=== PATIENT | female | born 1990 | race Hispanic/Latino ===

== ENCOUNTER 2023-01-22 10:10 | Observation (INO) | payer BC, MEDICAID ==
[~2023-01-22] VITALS: Ht 152.4 cm; Wt 98.9 kg
[2023-01-22 10:59] LABS: APPEARANCE,URINE CLEAR (CLEAR); BILIRUBIN,URINE NEGATIVE (NEGATIVE); COLOR,URINE COLORLESS (YELLOW); GLUCOSE, URINE (UA) NEGATIVE (NEGATIVE); KETONES,URINE NEGATIVE (NEGATIVE); LEUKOCYTE ESTERASE ,URINE NEGATIVE Leu/uL (NEGATIVE); NITRATE,URINE NEGATIVE (NEGATIVE); OCCULT BLOOD,URINE LARGE (NEGATIVE); PH,URINE 6.5 (5.0-8.0); PROTEIN,URINE NEGATIVE (NEGATIVE); UROBILINOGEN,URINE 0.2 mg/dL (0.2-1.0)
[2023-01-22 11:06] LABS: ADD UA MICROSCOPIC YES
[2023-01-22 11:54] LABS: SQUAMOUS EPITHELIAL CELL,UR FEW /HPF (0-2)
[2023-01-22] MEDS ORDERED: LACTATED RINGERS 1000ML 1,000 ML IV SCH (12:00)
== END 2023-01-22 14:25 | disposition home or self-care (01) ==
LOC: LDH 10:10
PROVIDERS: ADMIT Obstetrics & Gynecology; ATTEND Obstetrics & Gynecology
DX: O26.893 Other specified pregnancy related conditions, third trimester (principal); N89.8 Other specified noninflammatory disorders of vagina; E75.5 Other lipid storage disorders; Z3A.39 39 weeks gestation of pregnancy
CPT/HCPCS: 96360; 96361; 87088; 81001; 76819; G0378 ×4; G0379; J7120

== ENCOUNTER 2023-01-23 23:41 | Observation (INO) | payer MEDICAID ==
[~2023-01-23] VITALS: Ht 152.4 cm; Wt 102.2 kg
[2023-01-23 23:42] VITALS: BP 137/83; PULSE 103; RESP 20
[2023-01-24 00:06] LABS: ADD UA MICROSCOPIC NO; APPEARANCE,URINE CLEAR (CLEAR); BILIRUBIN,URINE NEGATIVE (NEGATIVE); COLOR,URINE COLORLESS (YELLOW); GLUCOSE, URINE (UA) NEGATIVE (NEGATIVE); KETONES,URINE NEGATIVE (NEGATIVE); LEUKOCYTE ESTERASE ,URINE NEGATIVE Leu/uL (NEGATIVE); NITRATE,URINE NEGATIVE (NEGATIVE); OCCULT BLOOD,URINE NEGATIVE (NEGATIVE); PH,URINE 6.5 (5.0-8.0); PROTEIN,URINE NEGATIVE (NEGATIVE); UROBILINOGEN,URINE 0.2 mg/dL (0.2-1.0)
[2023-01-24] MEDS: PROMETHAZINE HCL 25 MG/ML 1ML AMPULE IM ONE ×2 (01:58→02:44)
[2023-01-24] MEDS ORDERED: LACTATED RINGERS 1000ML IV ONE (02:00)
[2023-01-24] MEDS ORDERED: MEPERIDINE-PF 50 MG/ML SYG IVP ONE (02:00)
[2023-01-25] MEDS ORDERED: prenatal vitamin PO (20:55)
[2023-01-27] MEDS ORDERED: FERR-72 PO (07:53)
[2023-01-27] MEDS ORDERED: ACET-2079 PO (07:53)
== END 2023-01-24 02:45 | disposition home or self-care (01) ==
LOC: EDH 23:41 → LDH 23:45
PROVIDERS: ADMIT Obstetrics & Gynecology; ATTEND Obstetrics & Gynecology
DX: O62.9 Abnormality of forces of labor, unspecified (principal); Z3A.39 39 weeks gestation of pregnancy
CPT/HCPCS: 81003; 96374; 96361; G0378 ×3; G0379; J2550; J2175; 96360; 96375

== ENCOUNTER 2023-07-18 21:18 | Emergency (ER) | payer MEDICAID ==
[~2023-07-18] VITALS: Ht 152.4 cm; Wt 95.3 kg
[~2023-07-18 21:18] MED LIST: ACET-2079 PO; FERR-72 PO; prenatal vitamin PO
[2023-07-18 22:00] LABS: BASOPHILS # (AUTO) 0.06 K/uL (0.00-0.20); BASOPHILS % (AUTO) 0.5 % (0.0-5.0); EOSINOPHILS # (AUTO) 0.19 K/uL (0.00-0.70); EOSINOPHILS % (AUTO) 1.7 % (0.0-8.0); HEMATOCRIT 42.8 % (36-48); IMMATURE GRANULOCYTE ABSOLUTE 0.08 K/uL (0-1); LYMPHOCYTES # (AUTO) 3.6 K/uL (1.0-4.8); LYMPHOCYTES % (AUTO) 32.3 % (21.0-51.0); MEAN CORPUSCULAR HEMOGLOBIN 26.6 pg (27.0-33.0); MEAN CORPUSCULAR HGB CONC 32.7 g/dL (32.0-36.0); MEAN CORPUSCULAR VOLUME 81.2 fL (79-99); MONOCYTES # (AUTO) 0.9 K/uL (0.1-1.0); MONOCYTES % (AUTO) 8.4 % (3.0-13.0); NEUTROPHILS # (AUTO) 6.2 K/uL (1.8-7.7); NEUTROPHILS % (AUTO) 56.4 % (40.0-77.0); PLATELET COUNT (AUTO) 246 K/uL (130-400); RED BLOOD CELL COUNT(AUTO) 5.27 MIL/uL (4.00-5.50); RED CELL DISTRIBUTION WIDTH 15.3 % (11.0-15.5); WHITE BLOOD COUNT (AUTO) 11.1 K/uL (4.8-10.8)
[2023-07-18 22:12] LABS: CREATININE 0.7 mg/dL (0.5-1.0); POTASSIUM 3.5 mmol/L (3.5-5.1)
[2023-07-18 22:18] LABS: ALBUMIN 3.8 g/dL (3.5-5.0); BILIRUBIN,TOTAL 0.2 mg/dL (0.2-1.0)
[2023-07-18] MEDS: 0.9%NACL 1000ML 1,000 ML IV ONE (22:54)
[2023-07-18 23:21] VITALS: BP 117/69; PULSE 98; RESP 18; O2SAT 98
[2023-07-18] MEDS ORDERED: ONDA-243 PO (23:50)
== END 2023-07-18 23:43 | disposition home or self-care (01) ==
LOC: EDH 21:18
DX: R53.83 Other fatigue (principal); E86.0 Dehydration; Z79.899 Other long term (current) drug therapy; Z98.890 Other specified postprocedural states
CPT/HCPCS: 99284; 80053; 84703; 83690; 85025; 85378; 36415; 93005; J7030